=== PATIENT | male | born 1975 | race Hispanic/Latino ===

== ENCOUNTER → 2020-10-14 | Outpatient (CLI) | payer OTHER | END | disposition home or self-care (01) | LOC: RAH 15:55 | PROVIDERS: ATTEND Nurse Practitioner Adult Health | DX: Z13.6 Encounter for screening for cardiovascular disorders (principal); I51.5 Myocardial degeneration | CPT/HCPCS: 75571 ==

== ENCOUNTER → 2021-01-23 | Outpatient (CLI) | payer OTHER | END | disposition home or self-care (01) | LOC: SHCH 08:32 | PROVIDERS: ATTEND Internal Medicine Cardiovascular Disease | DX: R06.00 Dyspnea, unspecified (principal) | CPT/HCPCS: 93306; 93356 ==

== ENCOUNTER → 2021-12-14 | Outpatient (CLI) | payer OTHER | END | disposition home or self-care (01) | LOC: SHCH 14:18 | PROVIDERS: ATTEND Internal Medicine Cardiovascular Disease | DX: I08.2 Rheumatic disorders of both aortic and tricuspid valves (principal) | CPT/HCPCS: 93306 ==